=== PATIENT | female | born 1985 | race African-American/Black ===

== ENCOUNTER 2022-03-07 11:33 | Outpatient (CLI) | payer MEDICAID, SELFPAY ==
[2022-03-07 23:32] LABS: Chlamydia DNA Amplified* NOT DETECTED (No Detected); GC DNA Amplified* NOT DETECTED (No Detected)
== END 2022-03-07 11:34 | disposition home or self-care (01) ==
LOC: FRMREF 11:35
PROVIDERS: Visit Provider Registered Nurse
DX: Z11.3 Encounter for screening for infections with a predominantly sexual mode of transmission (principal)
CPT/HCPCS: 87491; 87591

== ENCOUNTER 2022-03-15 16:03 | Outpatient (CLI) | payer MEDICAID, SELFPAY ==
--- NOTE | 2022-03-15 16:00 | CRLHL7_ITS ---
For Patients: As a result of the Century Cures Act, medical imaging exams and procedure reports are released immediately into your electronic medical record. You may view this report before your referring provider. If you have questions, please contact your health care provider. CLINICAL HISTORY: UNABLE TO LOCATE IUD STRINGS TECHNIQUE: 2D mcneal scale and color Doppler images were acquired of the pelvis using a transvaginal approach. FINDINGS: On transvaginal imaging, the myometrium has a normal uniform echotexture. The uterus measures 9.2 x 5.3 x 5.8 cm. The endometrium measures 6 millimeters. Intrauterine device is located within the endometrial canal. Incidental Caesarean section scar noted. The right ovary measures 2.8 x 1.5 x 2.6 cm. Nonvisualization of the left ovary. The right ovary demonstrates normal arterial and venous blood flow on color Doppler analysis. There are no suspicious fluid collections within the cul-de-sac. IMPRESSION: IUD within the endometrial canal. Dictated by Johnathon Paiz MD @ 03/16/2022 8:59:41 AM (Electronically Signed)
== END 2022-03-15 16:04 | disposition home or self-care (01) ==
PROVIDERS: Visit Provider Registered Nurse
DX: T83.32XA Displacement of intrauterine contraceptive device, initial encounter (principal)
CPT/HCPCS: 76830